=== PATIENT | female | born 1990 | race Caucasian/White ===

== ENCOUNTER 2017-03-01 08:01 | Emergency (ER) | payer MEDICAID ==
[~2017-03-01] VITALS: Ht 160 cm; Wt 67.0 kg
[2017-03-01 08:05] VITALS: BP 100/69
[2017-03-01 09:02] LABS: HCG SCREEN POSITIVE
== END 2017-03-01 09:39 | disposition home or self-care (01) ==
LOC: ER 09:26
DX: L03.115 Cellulitis of right lower limb (principal); J45.909 Unspecified asthma, uncomplicated; W57.XXXA Bitten or stung by nonvenomous insect and other nonvenomous arthropods, initial encounter
CPT/HCPCS: 84703; 99283

== ENCOUNTER 2018-01-05 19:15 | Emergency (ER) | payer MEDICAID, OTHER ==
[~2018-01-05] VITALS: Ht 160 cm; Wt 59.0 kg
[2018-01-06] MEDS ORDERED: NAPROXEN 375MG TABLET PO ONE (01:15)
[2018-01-06 01:50] VITALS: BP 102/66
== END 2018-01-06 02:30 | disposition home or self-care (01) ==
LOC: ER 01-06 02:28
DX: R51 Headache (principal); H53.8 Other visual disturbances; R20.0 Anesthesia of skin; J45.909 Unspecified asthma, uncomplicated
CPT/HCPCS: 81025; 99283; Z7610